=== PATIENT | female | born 1975 | race Caucasian/White ===

== ENCOUNTER 2018-02-27 21:30 | Emergency (ER) | payer OTHER ==
[2018-02-27] MEDS ORDERED: Lidocaine 1% 50 ML MDV INJECT ONE (21:59)
[2018-02-27] MEDS ORDERED: Amoxicillin/Clavulanate K 875-125 MG Tab PO ONE (21:59)
[2018-02-27] MEDS ORDERED: Diphtheria,Pertussis(Acell),Tetanus Vaccine 0.5 ML SDV IM ONE (22:05)
--- NOTE | 2018-02-27 22:17 | EDM.PDOC ---
ED HPI GENERAL MEDICAL PROBLEM - General Chief Complaint: Laceration Stated Complaint: POSS HAND INJURY Time Seen by Provider: 02/27/18 21:51 Source of Information: Reports: Patient, RN Notes Reviewed - History of Present Illness INITIAL COMMENTS - FREE TEXT/NARRATIVE: 42-year-old female comes in with finger laceration. Family's 2 dogs got tangled up somehow with her collars, the one dog was "choking. This frantically trying to get them and suffer a laceration injury of the next finger of her left hand. She believes it likely came from one of the dog's teeth. Unsure of last tetanus immunization. She knows it is been more than 10 years ago, possibly much longer. Hand Pain Score (Numeric/FACES): 2 - Related Data Allergies Allergy/AdvReac Type Severity Reaction Status Date / Time Penicillins Allergy Hives Verified 02/27/18 21:37 Home Meds: Home Meds Amoxicillin/Potassium Clav [Augmentin 875-125 Tablet] 1 each PO Q12HR #10 tablet 02/27/18 [Rx] Levothyroxine 1 tab PO DAILY 02/27/18 [History] Past Medical History Endocrine/Metabolic History: Reports: Hypothyroidism Social & Family History - Tobacco Use Smoking Status *Q: Never Smoker - Caffeine Use Caffeine Use: Reports: Coffee - Recreational Drug Use Recreational Drug Use: No ED ROS GENERAL - Review of Systems Review Of Systems: See Below Constitutional: Reports: No Symptoms HEENT: Reports: No Symptoms Respiratory: Denies: Shortness of Breath GI/Abdominal: Reports: No Symptoms Musculoskeletal: Reports: Other (Laceration injury right index finger) Neurological: Denies: Numbness, Tingling, Weakness ED EXAM, SKIN/RASH Exam: See Below General Appearance: Alert, No Apparent Distress Head: Atraumatic Neck: Supple Respiratory/Chest: No Respiratory Distress Extremities: Other (2 cm laceration distal left index finger, flap type configuration, moderately deep, gaping,) Neurological: No Motor/Sensory Deficits Skin: Warm, Dry Course - Vital Signs Last Recorded V/S: Last Vital Signs Temp 98.3 F 02/27/18 21:34 Pulse 85 02/27/18 21:34 Resp 18 02/27/18 21:34 BP 132/86 02/27/18 21:34 Pulse Ox 98 02/27/18 21:34 - Orders/Labs/Meds Orders: Active Orders 24 hr Category Date Time Status Vaccines to be Administered [RC] PER UNIT ROUTINE Care 02/27/18 22:06 Active Meds: Medications Discontinued Medications Generic Name Dose Route Start Last Admin Trade Name Angela PRN Reason Stop Dose Admin Amoxicillin/Clavulanate Potassium 1 tab 02/27/18 21:59 02/27/18 22:16 Augmentin 875 Mg/125 Mg PO 02/27/18 22:00 1 tab ONETIME ONE Administration Diphtheria/Tetanus/Acell Pertussis 0.5 ml 02/27/18 22:05 02/27/18 22:14 Adacel IM 02/27/18 22:06 0.5 ml .ONCE ONE Administration Lidocaine HCl 50 ml 02/27/18 21:59 02/27/18 22:16 Xylocaine 1% INJECT 02/27/18 22:00 50 ml ONETIME ONE Administration Departure - Departure Time of Disposition: 22:15 Disposition: Home, Self-Care 01 Condition: Fair Clinical Impression: Finger laceration Qualifiers: Encounter type: initial encounter Finger: index finger Damage to nail status: without damage Foreign body presence: without foreign body Laterality: left Qualified Code(s): S61.211A - Laceration without foreign body of left index finger without damage to nail, initial encounter - Discharge Information Prescriptions: Amoxicillin/Potassium Clav [Augmentin 875-125 Tablet] 1 each PO Q12HR #10 tablet Instructions: Laceration Care, Adult Referrals: PCP,Unknown [Primary Care Provider] - Forms: ED Department Discharge Additional Instructions: Laceration care instructions, stitches should be removed in about 10-12 days, up to 14 days is okay. There is no charge if you choose to have those removed at our [facility], call [phone] for appointment. Augmentin antibiotic 875 mg twice daily for the next 5 days. Have rechecked any sign of infection. - My Orders Last 24 Hours: My Active Orders 02/27/18 22:06 Vaccines to be Administered [RC] PER UNIT ROUTINE - Assessment/Plan Last 24 Hours: My Active Orders 02/27/18 22:06 Vaccines to be Administered [RC] PER UNIT ROUTINE
== END 2018-02-27 22:49 | disposition home or self-care (01) ==
LOC: JD.ED 21:30
DX: S61.211A Laceration without foreign body of left index finger without damage to nail, initial encounter (principal); E03.9 Hypothyroidism, unspecified; Z23 Encounter for immunization; Z88.0 Allergy status to penicillin; Z79.899 Other long term (current) drug therapy; W23.0XXA Caught, crushed, jammed, or pinched between moving objects, initial encounter
CPT/HCPCS: 12001; 90471; 90715; 99283; A9270